=== PATIENT | male | born 1955 | race Caucasian/White ===

== ENCOUNTER 2022-05-26 07:13 | Emergency (ER) | payer OTHER, BC ==
[2022-05-26 08:17] LABS: #Eosinphils 0.2 thou/uL (0.0-0.7); #Monocytes 1.2 thou/uL (0.11-0.59); #Neutrophils 10.7 thou/uL (1.40-6.50); %Basophils 0.3 % (0.0-1.0); %Eosinophils 1.5 % (0.0-10.0); %Lymphocytes 14.1 % (21.0-51.0); %Monocytes 8.7 % (0.0-10.0); %Neutrophils 75.5 % (42.0-75.0); Mean Corpuscular HGB CONC 32.6 g/dL (32.0-36.0); Mean Corpuscular Hemoglobin 30.5 pg (27.0-31.0); Mean Corpuscular Volume 93.6 fl (78.0-98.0); Mean Platelet Volume 7.2 fL (7.4-10.4); Platelet Count 228 10x3/uL (130-400); RBC Distribution Width 12.8 % (11.5-14.5); Red Blood Cell (RBC) Count 5.24 mill/uL (4.70-6.10); White Blood Cell (WBC) Count 14.2 10x3/uL (4.8-10.8)
[2022-05-26 08:39] LABS: ALT (SGPT) 42 U/L (8-55); AST (SGOT) 43 U/L (5-34); Albumin 3.9 g/dL (3.4-4.8); Alkaline Phosphatase 107 U/L (40-110); Anion Gap 13 mmol/L (10-20); BUN (Urea Nitrogen) 20 mg/dL (8.4-25.7); Bilirubin, Total 0.3 mg/dL (0.2-1.2); Calc. Creatinine Clearance 0 mL/min (70-130); Calcium 8.8 mg/dL (7.8-10.44); Carbon Dioxide 27 mmol/L (23-31); Chloride 103 mmol/L (98-107); Estimated GFR 63; Globulin 3.3 g/dL (2.4-3.5); Glucose 152 mg/dL (80-115); Potassium 3.8 mmol/L (3.5-5.1); Protein, Total 7.2 g/dL (5.8-8.1); Sodium 139 mmol/L (136-145)
[2022-05-26] MEDS ORDERED: Iopamidol-370 76% 500 ML 1 ML ONE (08:53)
== END 2022-05-26 11:05 | disposition home or self-care (01) ==
LOC: ERS 07:13
DX: R10.813 Right lower quadrant abdominal tenderness (principal); E11.9 Type 2 diabetes mellitus without complications; V89.2XXA Person injured in unspecified motor-vehicle accident, traffic, initial encounter
CPT/HCPCS: 36415; 71260; 74177; 80053; 85025; Q9967

== ENCOUNTER 2022-07-02 07:11 | Day surgery (SDC) | payer BC, MEDICARE ==
[2022-06-27 10:22] VITALS: BMI 47.1
[~2022-07-02 07:11] MED LIST: EPINEPHrine 0.3 MG in Ophthalmic Irrigation Solution 500 ML IRR SCH; Fentanyl 100 MCG/2 ML VIAL ONE; Midazolam HCl 2 mg/2 ml Vial ONE
[2022-07-02] MEDS ORDERED: Cyclopentolate 1% Opth Drop 2 ML BOT ONE (07:24)
[2022-07-02] MEDS ORDERED: Phenylephrine 2.5% Ophth Soln 5 ML BOT ONE (07:24)
[2022-07-02] MEDS ORDERED: Lidocaine 4% PF 5 ML AMP ONE (08:44)
[2022-07-02] MEDS ORDERED: Bupivacaine 0.75% 10 ML VIAL ONE (08:44)
[2022-07-02] MEDS ORDERED: PROPOFOL 200 MG/20 ML VIAL ONE (08:44)
[2022-07-02] MEDS ORDERED: Lidocaine 1% PF 5 ML VIAL ONE (08:44)
[2022-07-02] MEDS ORDERED: Maxitrol 0.1% Opth Oint 3.5 GM TUBE ONE (08:44)
[2022-07-02] MEDS ORDERED: Indocyanine Green 25 MG/10 ML VIAL ONE (08:44)
[2022-07-02] MEDS ORDERED: CEFAZOLIN 1 GM VIAL ONE (08:44)
[2022-07-02] MEDS ORDERED: Triamcinolone 40 MG/ML VIAL ONE (08:44)
== END 2022-07-02 10:04 | disposition home or self-care (01) ==
LOC: SDC 07:11
PROVIDERS: ATTEND Ophthalmology Retina Specialist
PROC: 08NF3ZZ Release Left Retina, Percutaneous Approach (ICD-10-PCS; principal; 2022-07-02)
PROC: 08T53ZZ Resection of Left Vitreous, Percutaneous Approach (ICD-10-PCS; principal; 2022-07-02)
DX: H35.372 Puckering of macula, left eye (principal); Z79.84 Long term (current) use of oral hypoglycemic drugs; Z98.41 Cataract extraction status, right eye; Z98.42 Cataract extraction status, left eye; Z96.1 Presence of intraocular lens
CPT/HCPCS: J0171; J0690; J2250; J2704; J3010; J3301; J3490